=== PATIENT | female | born 1975 | race Caucasian/White ===

== ENCOUNTER 2018-12-31 09:24 | Emergency (ER) | payer SELFPAY ==
--- NOTE | 2018-12-31 09:46 | ED.PDOC ---
History of Present Illness - General Chief Complaint: General Stated Complaint: high bp Time Seen by Provider: 12/31/18 09:40 Source: patient, RN notes reviewed, Vital Signs reviewed Exam Limitations: no limitations - History of Present Illness Initial Comments: Pt is a 43 y/o WF who presents with c/o high bp. Pt was at work when they decided to check her blood pressure and it was noted to be high at 180/105. Pt was symptom free, specifically she denies having any headache, blurry vision, cp, sob, oliguria, flank pain, abdominal pain. Pt is anxious, but states she has severe anxiety for which she takes medication. Timing/Duration: unsure Severity: moderate Improving Factors: nothing Worsening Factors: nothing Associated Symptoms: denies symptoms Allergies/Adverse Reactions: Allergies NO KNOWN ALLERGY Allergy (Verified 12/31/18 09:35) Home Medications: Ambulatory Orders Propranolol HCl 10 mg PO TID 03/01/15 Fluoxetine HCl [PROzac] 20 mg PO DAILY 12/31/18 Gabapentin [Neurontin] 300 mg PO TID 12/31/18 Mirtazapine [Remeron] 15 mg PO BEDTIME 12/31/18 Oxcarbazepine [Trileptal] 600 mg PO BID 12/31/18 Quetiapine Fumarate [Seroquel] 300 mg PO BEDTIME 12/31/18 Zolpidem Tartrate [Ambien] 5 mg PO BEDTIME 12/31/18 Review of Systems - Review of Systems Constitutional: States: no symptoms reported EENTM: States: no symptoms reported Respiratory: States: no symptoms reported Cardiology: States: no symptoms reported Gastrointestinal/Abdominal: States: no symptoms reported Genitourinary: States: no symptoms reported Musculoskeletal: States: no symptoms reported Skin: States: no symptoms reported Neurological: States: anxiety, emotional problems. Denies: numbness, paresthesia, tingling, tremors, weakness Endocrine: States: no symptoms reported Hematologic/Lymphatic: States: no symptoms reported All other Systems: Reviewed and Negative Past Medical History (General) - Patient Medical History Hx Asthma: No Hx Cardiac Disorders: No Hx Congestive Heart Failure: No Hx Diabetes: No Hx Cancer: No Hx Hepatitis C: No Surgical History: no surgical history - Vaccination History Hx Tetanus, Diphtheria Vaccination: No Hx Influenza Vaccination: No Hx Pneumococcal Vaccination: No - Social History Hx Tobacco Use: No Hx Depression: Yes - Activities of Daily Living Patient Lives Alone: No - daughter lives with her - Female History Patient is a Female of Child Bearing Age (10 -59 yrs old): Yes Family Medical History - Family History Mother Family History: Unknown Living Status: Still Living Hx Family;Other: BIPOLAR AND SCZ Father Living Status: - of a heart attack Age at (years of age): 45 Cause of : Heartattack Hx Family Hypertension: Yes Physical Exam - Physical Exam General Appearance: Agitated, Alert, Anxious, Restless, Well Developed, Well Groomed, Well Hydrated, Well Nourished Eye Exam: bilateral normal Ears, Nose, Throat: hearing grossly normal, normal ENT inspection, normal pharynx Neck: non-tender, full range of motion, supple, normal inspection Respiratory: chest non-tender, lungs clear, normal breath sounds, no respiratory distress, no accessory muscle use Cardiovascular/Chest: normal peripheral pulses, regular rate, rhythm, no edema, no gallop, no JVD, no murmur Peripheral Pulses: radial,right: 2+, radial,left: 2+ Gastrointestinal/Abdominal: normal bowel sounds, non tender, soft, no organomegaly, no pulsatile mass Rectal Exam: deferred Back Exam: normal inspection, no CVA tenderness, no vertebral tenderness Extremity: normal range of motion, non-tender, normal inspection, no pedal edema, no calf tenderness, normal capillary refill, pelvis stable Neurologic: tank tester II-XII nml as tested, no motor/sensory deficits, alert, oriented x 3, other - Pt is anxious and intermittently tearful DTR: 2+: Achilles, left, Achilles, right, 3+: Patellar, left, Patellar, right Skin Exam: normal color, warm/dry Lymphatic: no adenopathy Progress - Results/Orders Results/Orders: 12/31/18 09:41 EKG Assessment ONCE 12/31/18 09:45 EKG STAT Laboratory Results - last 24 hr 12/31/18 12/31/18 12/31/18 09:48 09:48 09:48 WBC 4.3 L RBC 4.10 L Hgb 11.9 L Hct 36.5 MCV 88.9 MCH 29.1 MCHC 32.7 L RDW 13.8 Plt Count 249 MPV 7.4 Absolute Neuts (auto) 2.50 Absolute Lymphs (auto) 1.10 Absolute Monos (auto) 0.30 Absolute Eos (auto) 0.30 Absolute Basos (auto) 0.00 Neutrophils % 59.0 Lymphocytes % 26.6 Monocytes % 6.6 Eosinophils % 6.9 H Basophils % 0.9 Sodium 131 L Potassium 3.7 Chloride 97 L Carbon Dioxide 23 Anion Gap 14.7 BUN 8 Creatinine 0.69 BUN/Creatinine Ratio 11.6 Random Glucose 88 Serum Osmolality 260.4 L Calcium 8.5 Total Bilirubin 0.6 AST 22 ALT 15 Alkaline Phosphatase 62 Troponin I < 0.02 Serum Total Protein 7.4 Albumin 4.3 Globulin 3.1 Albumin/Globulin Ratio 1.4 Lipase 28 TSH Urine Color Urine Appearance Urine pH Ur Specific Barnett Urine Protein Urine Glucose (UA) Urine Ketones Urine Blood Urine Nitrite Urine Bilirubin Urine Urobilinogen Ur Leukocyte Esterase Urine RBC Urine WBC Ur Epithelial Cells Other Crystals Amorphous Sediment Urine Bacteria Urine Mucus 12/31/18 12/31/18 09:48 10:07 WBC RBC Hgb Hct MCV MCH MCHC RDW Plt Count MPV Absolute Neuts (auto) Absolute Lymphs (auto) Absolute Monos (auto) Absolute Eos (auto) Absolute Basos (auto) Neutrophils % Lymphocytes % Monocytes % Eosinophils % Basophils % Sodium Potassium Chloride Carbon Dioxide Anion Gap BUN Creatinine BUN/Creatinine Ratio Random Glucose Serum Osmolality Calcium Total Bilirubin AST ALT Alkaline Phosphatase Troponin I Serum Total Protein Albumin Globulin Albumin/Globulin Ratio Lipase TSH 1.98 Urine Color Yellow Urine Appearance Clear Urine pH 7.0 Ur Specific Barnett 1.015 Urine Protein Negative Urine Glucose (UA) Negative Urine Ketones Negative Urine Blood Trace-intact H Urine Nitrite Negative Urine Bilirubin Negative Urine Urobilinogen 0.2 Ur Leukocyte Esterase Negative Urine RBC 0-1 Urine WBC 0-1 Ur Epithelial Cells 0-1 Other Crystals 1+powder crystals Amorphous Sediment Trace Urine Bacteria Rare Urine Mucus Trace PA/lateral FINDINGS: The lungs are well expanded and clear. No infiltrates or effusions or masses are noted. The heart is normal in size and shape with no evidence of vascular congestion. The jenna and mediastinum demonstrate normal contours. The bony spine and chest wall is normal for age in appearance. IMPRESSION: Normal chest, two views - EKG/XRAY/CT Comments: NSR@65bpm, NAD, LAE, LVH, abnormal ekg CT Ordered: No CT Interpretation Call Back: No Departure - Departure Clinical Impression: Accelerated hypertension, Anxiety Time of Disposition: 11:54 Disposition: Discharge to Home or Self Care Condition: Good Departure Forms: ED Discharge - Pt. Copy, Patient Portal Self Enrollment Instructions: High Blood Pressure (DC) Referrals: TIANA SZYMANSKI IV, IT SPECIALIST [Primary Care Provider] - 1-2 Weeks Home Medications: Ambulatory Orders Propranolol HCl 10 mg PO TID 03/01/15 Fluoxetine HCl [PROzac] 20 mg PO DAILY 12/31/18 Gabapentin [Neurontin] 300 mg PO TID 12/31/18 Mirtazapine [Remeron] 15 mg PO BEDTIME 12/31/18 Oxcarbazepine [Trileptal] 600 mg PO BID 12/31/18 Quetiapine Fumarate [Seroquel] 300 mg PO BEDTIME 12/31/18 Zolpidem Tartrate [Ambien] 5 mg PO BEDTIME 12/31/18
[2018-12-31] MEDS ORDERED: cloNIDine HCL 0.1 MG TAB PO ONE (09:51)
--- NOTE | 2018-12-31 10:13 | RAD ---
EXAM DESCRIPTION: Chest,2 Views CLINICAL HISTORY: high blood pressure COMPARISON: None TECHNIQUE: PA/lateral FINDINGS: The lungs are well expanded and clear. No infiltrates or effusions or masses are noted. The heart is normal in size and shape with no evidence of vascular congestion. The jenna and mediastinum demonstrate normal contours. The bony spine and chest wall is normal for age in appearance. IMPRESSION: Normal chest, two views Electronically signed by: Escobar Segundo MD 12/31/2018 10:11 AM CDT
[2018-12-31 12:13] VITALS: BP 158/93; TEMP 98.4; O2SAT 97
== END 2018-12-31 12:10 | disposition home or self-care (01) ==
LOC: ER 09:24
DX: I10 Essential (primary) hypertension (principal); F41.9 Anxiety disorder, unspecified; R94.31 Abnormal electrocardiogram [ECG] [EKG]; I51.7 Cardiomegaly; F32.9 Major depressive disorder, single episode, unspecified; Z79.899 Other long term (current) drug therapy